=== PATIENT | male | born 1995 | race Two or more races ===

== ENCOUNTER 2019-06-09 19:36 | Emergency (ER) | payer SELFPAY ==
[~2019-06-09] VITALS: Ht 162.6 cm; Wt 72.7 kg
[~2019-06-09 19:36] MED LIST: NOCURR
[2019-06-09 21:26] VITALS: BP 102/45
[2019-06-09] MEDS ORDERED: ACETAMINOPHEN 500 MG TABLET PO ONE (21:45)
[2019-06-09] MEDS ORDERED: IBUPROFEN 600 MG TABLET PO ONE (21:45)
[2019-06-09] MEDS ORDERED: GuaiFENesin/D-METHORPHAN [SUGAR-FREE] 200-20MG/10 ML SYRUP UDCUP PO ONE (21:45)
[2019-06-09 22:38] LABS: INFLUENZA TYPE A NEGATIVE FOR TYPE A (NEGATIVE); INFLUENZA TYPE B NEGATIVE FOR TYPE B (NEGATIVE)
== END 2019-06-09 22:12 | disposition home or self-care (01) ==
LOC: EMS 19:37
DX: J06.9 Acute upper respiratory infection, unspecified (principal); B34.9 Viral infection, unspecified; F19.10 Other psychoactive substance abuse, uncomplicated; F17.210 Nicotine dependence, cigarettes, uncomplicated; Z03.818 Encounter for observation for suspected exposure to other biological agents ruled out
CPT/HCPCS: 87804; 99406